=== PATIENT | female | born 1955 | race Caucasian/White ===

== ENCOUNTER 2016-12-05 10:06 | Emergency (ER) | payer BC ==
--- NOTE | 2016-12-05 10:24 | ED ---
Laceration/Wound HPI - HPI Summary HPI Summary: 61 YEAR OLD FEMALE PRESENTS WITH COMPLAINS OF DEEP RIGHT EYEBROW LACERATION AND HEAD INJURY. I AM VERY CONCERNED ABOUT THE DEPT OF THE LACERATION AND THE POSSIBILITY OF AN INTRACRANIAL BLEED SO I WILL SEND HER TO THE ER. - History of Current Complaint Stated Complaint: HEAD LAC Time Seen by Provider: 12/05/16 10:20 Hx Obtained From: Patient Mechanism of Injury: Sharp/Blunt Trauma Onset/Duration: Sudden Onset Aggravating: Nothing Alleviating: Nothing Onset Severity: Severe Current Severity: Severe Pain Scale Used: 0-10 Numeric - 5 Associated Signs & Symptoms: Negative - Allergy/Home Medications Allergies/Adverse Reactions: Allergies Allergy/AdvReac Type Severity Reaction Status Date / Time No Known Allergies Allergy Verified 12/05/16 10:20 PMH/Surg Hx/FS Hx/Imm Hx Previously Healthy: Yes Sensory History: Reports: Hx Cataracts, Hx Contacts or Glasses - GLASSES Denies: Hx Hearing Aid Opthamlomology History: Reports: Hx Cataracts, Hx Contacts or Glasses - GLASSES - Surgical History Surgery Procedure, Year, and Place: TONSILLECTOMY 1969. WISDOM TEETH REMOVAL 1979 Hx Anesthesia Reactions: No - Social History Alcohol Use: Daily Alcohol Amount: 1 DRINK/DAY Substance Use Type: Reports: None Smoking Status (MU): Never Smoked Tobacco Review of Systems Constitutional: Negative Eyes: Negative ENT: Negative Cardiovascular: Negative Respiratory: Negative Gastrointestinal: Negative Genitourinary: Negative Musculoskeletal: Negative Positive: Other - RIGHT EYEBROW LACERATION All Other Systems Reviewed And Are Negative: Yes Physical Exam Triage Information Reviewed: Yes Vital Signs Reviewed: Yes Skin: Positive: Warm Head/Face: Positive: Scalp - RIGHT EYEBROW LACERATION HEAD INJURY Eyes: Positive: Normal ENT: Positive: Normal ENT inspection Neck: Positive: Supple Respiratory/Lung Sounds: Positive: Clear to Auscultation Cardiovascular: Positive: Normal Abdomen Description: Positive: Nontender Bowel Sounds: Positive: Present Musculoskeletal: Positive: Normal Neurological: Positive: Normal Psychiatric: Positive: Normal Laceration Repair Course/Dx - Clinical Impression Provider Diagnoses: Laceration of eyebrow, right, Head injuries Discharge - Discharge Plan Condition: Stable Disposition: HOME Patient Education Materials: Laceration (ED) Referrals: Kenisha Garcia MD [Primary Care Provider] - Additional Instructions: PLEASE GO TO ER FOR LARGE RIGHT EYE BROW LACERATION IN COMBINATION WITH A TRAUMATIC HEAD INJURY.
[2016-12-05 10:29] VITALS: BP 142/84
== END 2016-12-05 10:56 | disposition home or self-care (01) ==
LOC: UCEAST 10:06
DX: S01.111A Laceration without foreign body of right eyelid and periocular area, initial encounter (principal); X58.XXXA Exposure to other specified factors, initial encounter; Y92.9 Unspecified place or not applicable
CPT/HCPCS: 99212; G0463

== ENCOUNTER 2016-12-05 11:17 | Emergency (ER) | payer BC ==
[2016-12-05] MEDS ORDERED: Tetan/Diph/Pertus SYR(Tdap)* 0.5 ML SYR(BOOSTRIX) use SYR IM ONE (12:01)
[2016-12-05] MEDS ORDERED: Lidocaine 1%* 5 ML VIAL ONE (12:30)
--- NOTE | 2016-12-05 12:57 | ED ---
Yane Recinos Alfonso, scribed for Rosangela Dillard MD on 12/05/16 at 1153 . Head Injury - HPI Summary HPI Summary: This patient is a 61 year old F presenting from [facility] to [facility] with a chief complaint of a head injury which occurred earlier today. She states I was running, slipped, and fell into a metal table. The patient rates the pain 2/10 in severity. Symptoms aggravated by nothing. Symptoms alleviated by nothing. Patient reports a right eyebrow laceration and mild nausea (resolved). Patient denies headache, and LOC. She denies taking blood thinning medications. The patient prefers to not have a CT scan, and reports that she has family members that will keep close attention to her. - History Of Current Complaint Chief Complaint: EDHeadInjury Stated Complaint: FALL/HEAD LAC Time Seen by Provider: 12/05/16 11:34 Hx Obtained From: Patient Mechanism Of Injury: Direct Blow Onset/Duration: Started Hours Ago, Traumatic Onset of Pain: Prior to Arrival Severity Initially: Mild Pain Intensity: 2 Pain Scale Used: 0-10 Numeric Location of Head Injury: Frontal Aggravating Factor(s): Other: - nothing Alleviating Factor(s): Other: - nothing Associated Signs And Symptoms: Other: - right eyebrow laceration and mild nausea (resolved). Patient denies headache, and LOC. - Allergies/Home Medications Allergies/Adverse Reactions: Allergies Allergy/AdvReac Type Severity Reaction Status Date / Time No Known Allergies Allergy Verified 12/05/16 10:20 PMH/Surg Hx/FS Hx/Imm Hx Endocrine/Hematology History: Denies: Hx Diabetes, Hx Thyroid Disease Cardiovascular History: Denies: Hx Hypertension Respiratory History: Denies: Hx Asthma, Hx Chronic Obstructive Pulmonary Disease (COPD) GI History: Denies: Hx Ulcer Sensory History: Reports: Hx Cataracts, Hx Contacts or Glasses - GLASSES Denies: Hx Hearing Aid Opthamlomology History: Reports: Hx Cataracts, Hx Contacts or Glasses - GLASSES - Surgical History Surgery Procedure, Year, and Place: TONSILLECTOMY 1969. WISDOM TEETH REMOVAL 1979 Hx Anesthesia Reactions: No Infectious Disease History: No Infectious Disease History: Denies: Hx Hepatitis, Hx Human Immunodeficiency Virus (HIV), History Other Infectious Disease, Traveled Outside the [place] in Last 30 Days - Family History Known Family History: Negative: Diabetes - Social History Lives: With Family - mother Alcohol Use: Daily Alcohol Amount: 1 DRINK/DAY Substance Use Type: Reports: None Smoking Status (MU): Never Smoked Tobacco Review of Systems Positive: Nausea - resolved Skin: Other - right eyebrow laceration Neurological: Other - head injury; negative headache and loc All Other Systems Reviewed And Are Negative: Yes Physical Exam Triage Information Reviewed: Yes Vital Signs On Initial Exam: Initial Vitals Temp Pulse Resp BP Pulse Ox 96.8 F 46 20 150/88 100 12/05/16 11:27 12/05/16 11:27 12/05/16 11:27 12/05/16 11:27 12/05/16 11:27 Vital Signs Reviewed: Yes Appearance: Positive: Well-Appearing, No Pain Distress Skin: Positive: Warm, Skin Color Reflects Adequate Perfusion, Dry, Other - 3 cm laceration over right eyebrow Eyes: Positive: EOMI, CAROLYN ENT: Positive: Pharynx normal, TMs normal Neck: Positive: Supple, Nontender Respiratory/Lung Sounds: Positive: Clear to Auscultation, Breath Sounds Present. Negative: Rales, Rhonchi, Wheezes Cardiovascular: Positive: RRR, Other - No gallop. Negative: Murmur, Rub Abdomen Description: Positive: Nontender, Soft, Other: - No rebound. Negative: Distended, Guarding Bowel Sounds: Positive: Present Musculoskeletal: Positive: Strength/ROM Intact. Negative: Edema Left, Edema Right Neurological: Positive: Sensory/Motor Intact, Alert, Oriented to Person Place, Time, CN Intact II-III - 2-12 Psychiatric: Positive: Affect/Mood Appropriate - [place] Coma Scale Best Eye Response: 4 - Spontaneous Best Motor Response: 6 - Obeys Commands Best Verbal Response: 5 - Oriented Coma Scale Total: 15 Procedures - Laceration/Wound Repair 1 Location: face Description: Linear Anesthesia: Local, 1.0%, Lido Length, Depth and Shape: 3 cm long, .5 cm deep Betadine Prep?: No Irrigated w/ Saline (ccs): 250 - cc normal salind Laceration/Wound Explored: clean Closure: Single Layer Suture Type: Nylon Number of Sutures: 6 Layer Closure?: No Sterile Dressing Applied?: No Diagnostics - Vital Signs Vital Signs Temp Pulse Resp BP Pulse Ox 12/05/16 11:27 96.8 F 46 20 150/88 100 - Laboratory Lab Statement: Any lab studies that have been ordered have been reviewed, and results considered in the medical decision making process. Head Injury Course/Dx Course Of Treatment: pt sent from [facility], she did not want to have a head ct she lives with her mother and has a neighbor who is a nurse who can periodically check on her. during her laceration repair a small contusion over her upper eye lid appeared normal extra ocular movements no step off no crepitus - Diagnoses Provider Diagnoses: Laceration Discharge - Discharge Plan Condition: Stable Disposition: HOME Patient Education Materials: Head Injury (ED), Care For Your Stitches (ED), Laceration (ED) Referrals: Kenisha Garcia MD [Primary Care Provider] - 3 Days Additional Instructions: RETURN TO THE EMERGENCY DEPARTMENT FOR CHANGING OR WORSENING SYMPTOMS. HAVE YOUR STITCHES REMOVED IN 3-5 DAYS. The documentation as recorded by the Yane culp Alfonso accurately reflects the service I personally performed and the decisions made by me, Rosangela Dillard MD.
[2016-12-05 13:40] VITALS: BP 148/86
== END 2016-12-05 13:39 | disposition home or self-care (01) ==
LOC: ED 11:17
DX: S01.111A Laceration without foreign body of right eyelid and periocular area, initial encounter (principal); R11.0 Nausea; W19.XXXA Unspecified fall, initial encounter; Y93.9 Activity, unspecified; Y92.9 Unspecified place or not applicable
CPT/HCPCS: 12011; 90471; 90715; 99282

== ENCOUNTER 2016-12-10 08:24 | Emergency (ER) | payer BC ==
[2016-12-10 08:29] VITALS: BP 116/67
--- NOTE | 2016-12-10 09:15 | ED ---
ED Suture/Wound Check - HPI Summary HPI Summary: Pt here w/ for suture removal. Fell 5 days ago and struck her Rt eye/face area on a metal table. She admits she felt "out of it" the first couple of days, but has been feeling well since. Her wound appears to be healing well - no fever, chills, redness, swelling, d/c. - History Of Current Complaint Chief Complaint: EDLacSutureRecheck Stated Complaint: REMOVE STITCHES Time Seen by Provider: 12/10/16 08:39 Hx Obtained From: Patient Pain Intensity: 0 - Allergies/Home Medications Allergies/Adverse Reactions: Allergies Allergy/AdvReac Type Severity Reaction Status Date / Time No Known Allergies Allergy Verified 12/05/16 10:20 PMH/Surg Hx/FS Hx/Imm Hx Previously Healthy: Yes Endocrine/Hematology History: Denies: Hx Anticoagulant Therapy, Hx Blood Disorders, Hx Diabetes, Hx Thyroid Disease, Autoimmune Disease Cardiovascular History: Denies: Hx Hypertension Respiratory History: Denies: Hx Asthma, Hx Chronic Obstructive Pulmonary Disease (COPD) GI History: Denies: Hx Ulcer Sensory History: Reports: Hx Cataracts, Hx Contacts or Glasses - GLASSES Denies: Hx Hearing Aid Opthamlomology History: Reports: Hx Cataracts, Hx Contacts or Glasses - GLASSES - Surgical History Surgery Procedure, Year, and Place: TONSILLECTOMY 1969. WISDOM TEETH REMOVAL 1979 Hx Anesthesia Reactions: No - Immunization History Immunizations Up to Date: Yes Infectious Disease History: Unable to Obtain/Confirm Infectious Disease History: Denies: Hx Hepatitis, Hx Human Immunodeficiency Virus (HIV), Hx of Known/ Suspected MRSA, History Other Infectious Disease, Traveled Outside the [place] in Last 30 Days - Family History Known Family History: Negative: Diabetes - Social History Occupation: Employed Full-time - industrial education instructor Lives: With Family Alcohol Use: Daily Alcohol Amount: 1 DRINK/DAY Hx Substance Use: No Substance Use Type: Reports: None Hx Tobacco Use: No Smoking Status (MU): Never Smoked Tobacco Review of Systems Constitutional: Negative Negative: Fever, Chills Eyes: Negative Negative: Photophobia, Blurred Vision, Diplopia Skin: Other - see HPI Neurological: Negative Psychological: Normal All Other Systems Reviewed And Are Negative: Yes Physical Exam Triage Information Reviewed: Yes Vital Signs On Initial Exam: Initial Vitals Temp Pulse Resp BP Pulse Ox 96.8 F 55 17 116/67 97 09/25/17 08:26 12/10/16 08:26 12/10/16 08:26 12/10/16 08:26 12/10/16 08:26 Vital Signs Reviewed: Yes Appearance: Positive: Well-Appearing, No Pain Distress, Well-Nourished Skin: Positive: Warm - healing linear lac over Rt supraorbital ridge within eyebrown - dry, scabbed w/o erythema, edema, d/c - NTTP Head/Face: Positive: Other - healing ecchymosis about the Rt periorbital region (mostly yellow) Eyes: Positive: Normal, EOMI, CAROLYN, Conjunctiva Clear ENT: Positive: Hearing grossly normal Respiratory/Lung Sounds: Positive: Breath Sounds Present Cardiovascular: Positive: Normal Musculoskeletal: Positive: Normal, Strength/ROM Intact Neurological: Positive: Normal, Sensory/Motor Intact, Alert, Oriented to Person Place, Time, CN Intact II-III Psychiatric: Positive: Normal - [place] Coma Scale Coma Scale Total: 15 Procedures - Procedure Summary Procedure Summary: Area gently cleansed - 6 black sutures removed from Rt eyebrow - cleansed again and triple abx ointment applied - no bleeding or dehiscence - pt tolerated well Diagnostics - Vital Signs Vital Signs Temp Pulse Resp BP Pulse Ox 12/10/16 08:26 96.8 F 55 17 97 - Laboratory Lab Statement: Any lab studies that have been ordered have been reviewed, and results considered in the medical decision making process. Course/Dx - Course Course Of Treatment: Discussed healing techniques w/ moisture rish oils, gentle massage when times is appropiate to do so - continue to monitor for infection - followup with plasctic surgery if concerned about scar. No neuro sx x 3 days. Return to PCP if concern or if danger s/sx present, return to ED - Clinical Impression Provider Diagnoses: Visit for suture removal Discharge - Discharge Plan Condition: Stable Disposition: HOME Patient Education Materials: Acute Wound Care (ED), Wound Healing and Your Diet (ED) Referrals: Kenisha Garcia MD [Primary Care Provider] - Buzz Fraga MD [Medical Doctor] - Additional Instructions: Keep area clean by washing daily with soap and water - rinse well and pat dry with clean cloth then reapply triple antibiotic ointment. Monitor for redness, swelling, purulent drainage, fever, chills - if these present, seek medical attention As the wound is healed, you may apply moisturizing agents such as Vit A and Vitamin E. You may also take special care of wound to avoid sunburn as tissue is more delicate - apply topical sunscreen and/or physical barrier with hats, etc. If you are concerned about the scar, you can always consult with a plastic surgeon. Contact information included here. If you develop neurological deficits, return to ED
== END 2016-12-10 09:43 | disposition home or self-care (01) ==
LOC: ED 08:24
DX: Z48.02 Encounter for removal of sutures (principal)
CPT/HCPCS: 99281